=== PATIENT | female | born 1975 | race Caucasian/White ===

== ENCOUNTER 2021-02-22 08:46 | Emergency (ER) | payer OTHER ==
[~2021-02-22] VITALS: Ht 170.2 cm; Wt 112.0 kg
[2021-02-22] MEDS ORDERED: HYDROCODON-ACE1 EAC7 PO (10:26)
[2021-02-22 10:45] VITALS: BP 150/86
== END 2021-02-22 10:46 | disposition home or self-care (01) ==
LOC: M.ERS 08:46
DX: S52.502A Unspecified fracture of the lower end of left radius, initial encounter for closed fracture (principal); Z88.0 Allergy status to penicillin; W01.0XXA Fall on same level from slipping, tripping and stumbling without subsequent striking against object, initial encounter; Y93.89 Activity, other specified; Y92.89 Other specified places as the place of occurrence of the external cause; Y99.8 Other external cause status